=== PATIENT | male | born 1945 | race Caucasian/White ===

== ENCOUNTER 2020-10-16 14:10 | Inpatient (IN) | payer MEDICARE, OTHER ==
[~2020-10-16] VITALS: Ht 172.7 cm; Wt 80.7 kg
--- NOTE | 2020-10-16 00:50 | NUR ---
Sleeping during initial rounds. No s/s of pain/discomforts. Safety measures and fall prevention maintained.
[2020-10-16] MEDS ORDERED: Z GUARD REMEDY PASTE 57 GM TUBE TOP PRN (15:30)
--- NOTE | 2020-10-16 16:15 | NUR ---
Patient is admitted from [facility]. Came here via gurney VS WN. Patient is alert and oriented x 4 denies of any pain. Left hip dressing from the surgery intact. Skin is intact. On room air saturating at 97-98%. No s/s of distress. Call light within reach , urinal within easy reach. Dr. Johnson and Dr Tapia notified. Endorsed to the next shift.
[2020-10-16] MEDS ORDERED: RANO500T6 PO (17:57)
[2020-10-16] MEDS ORDERED: HYDR-3980 PO (17:57)
[2020-10-16] MEDS ORDERED: LOSA25TA27 PO (17:57)
[2020-10-16] MEDS ORDERED: METO-356 PO (17:57)
[2020-10-16] MEDS ORDERED: Morphine IV (17:57)
[2020-10-16] MEDS ORDERED: GABA100C PO (17:57)
[2020-10-16] MEDS ORDERED: ZOLP5TAB8 PO (17:57)
[2020-10-16] MEDS ORDERED: MAG355OR18 PO (17:57)
[2020-10-16] MEDS ORDERED: ATOR20TA PO (17:57)
[2020-10-16] MEDS ORDERED: [UNRECOGNIZED DRUG - CODE] PO (17:57)
[2020-10-16] MEDS ORDERED: ENOX40DI SQ (17:57)
[2020-10-16] MEDS ORDERED: Zofran IVP (17:57)
[2020-10-16] MEDS ORDERED: LINA5TAB PO (17:57)
[2020-10-16] MEDS ORDERED: ENZA40CA PO (17:57)
[2020-10-16] MEDS ORDERED: GEMF600T90 PO (17:57)
[2020-10-16] MEDS ORDERED: ACET-2154 PO (17:57)
[2020-10-16 21:18] VITALS: BP 115/46
[2020-10-16] MEDS ORDERED: HYDROCODONE/APAP 10-325 MG TABLET PO PRN (22:45)
[2020-10-16] MEDS ORDERED: MORPHINE SULFATE 2 MG/1 ML DISP.SYRIN IV PRN (22:45)
[2020-10-16] MEDS ORDERED: ONDANSETRON 4 MG/2 ML VIAL IV PRN (22:45)
[2020-10-17] MEDS: ACETAMINOPHEN 325 MG TABLET PO PRN ×2 (01:00→22:35)
--- NOTE | 2020-10-17 01:02 | NUR ---
Temperature re checked 100.3. Tylenol 650 mg given as ordered and needed. Cooling measures initiated. Continue to monitor.
--- NOTE | 2020-10-17 02:10 | NUR ---
Temperature this time 99.3. Resting comfortably. No complaint of pain/discomforts. Continue to monitor.
[2020-10-17 05:37] VITALS: BP 128/62
--- NOTE | 2020-10-17 05:38 | NUR ---
Temperature rechecked 98.0.
--- NOTE | 2020-10-17 05:51 | NUR ---
Shift End Report: Now afebrile with temp of 98.0 No complaint presented. Made comfortable at all times. No complaint presented all night. Continue care as planned.
[2020-10-17 08:00] VITALS: BP 119/48
[2020-10-17] MEDS: LOSARTAN POTASSIUM 25 MG TABLET PO SCH (08:49)
[2020-10-17] MEDS: GABAPENTIN 100 MG CAPSULE PO SCH (08:50)
[2020-10-17] MEDS: METOPROLOL SUCCINATE XL 25 MG TAB.SR.24H PO SCH (08:50)
[2020-10-17] MEDS: ATORVASTATIN 20 MG TABLET PO SCH (08:50)
[2020-10-17] MEDS: GEMFIBROZIL 600 MG TABLET PO SCH (08:50)
[2020-10-17] MEDS: LINAGLIPTIN 5 MG TABLET PO SCH (08:50)
[2020-10-17] MEDS ORDERED: ENOXAPARIN SODIUM 40 MG/0.4 ML DISP.SYRIN SQ ONE (09:00)
[2020-10-17] MEDS: OXYCODONE HCL 5 MG TABLET PO PRN (11:07)
[2020-10-17] MEDS ORDERED: DEXTROSE 50% 50 ML DISP.SYRIN IV PRN (14:00)
[2020-10-17] MEDS ORDERED: ENZA40CA PO (15:37)
[2020-10-17] MEDS ORDERED: XTANDI 160 MG PO SCH (15:45)
[2020-10-17 16:25] VITALS: BP 110/42
[2020-10-17] MEDS: BLOOD SUGAR DIAGNOSTIC 1 EACH STRIP VI SCH ×2 (17:23→21:03)
[2020-10-17] MEDS: XTANDI 160 MG PO SCH (17:25)
[2020-10-17] MEDS ORDERED: METFORMIN HCL 500 MG TABLET PO SCH (18:00)
--- NOTE | 2020-10-17 18:00 | NUR ---
Patient in bed, alert and oriented x 4, pleasant and cooperative upon assessment. Dressing on the left hip intact . All due meds given as ordered. @1500 Seen and examined by Daniella Austin and ordered Metformin 500mg PO daily to be started tomorrow 10/18/20 @ [address] Dr[address] Johnson ordered for Xtandi 160mg PO daily. @1630 Patient temp is 99.2. Cooling measure given @ 1730 patient temp is 98.8 and patient stated " I AM OK" . VS WNL. No s/s of distress. Will continue to monitor.
[2020-10-17 20:48] VITALS: BP 110/44
[2020-10-17] MEDS: MAG HYDROX/AL HYDROX/SIMETH 30 ML LIQUID UDC PO SCH (21:02)
--- NOTE | 2020-10-17 22:45 | NUR ---
Patient in bed, alert and oriented x 4, pleasant and cooperative upon assessment. Dressing on the left hip intact . All due meds given as ordered, no c/o pain patient has temp 99.7 PRN Tylenol administered as ordered cooling measures initiated. Safety measures maintained call light with in reach. continue monitoring.
[2020-10-18 04:07] VITALS: BP 110/56
[2020-10-18 04:57] VITALS: BP 116/53
--- NOTE | 2020-10-18 05:12 | NUR ---
Patient slept sound all night v/s assess again, VSS patient remain afebrile, no acute distress noted. All needs anticipated kept call light with in reach will endorse accordingly AM shift. Continue with same plan of care.
[2020-10-18] MEDS: BLOOD SUGAR DIAGNOSTIC 1 EACH STRIP VI SCH ×4 (07:04→20:08)
[2020-10-18 07:17] LABS: CARBON DIOXIDE 28 mmol/L (21-32); CHLORIDE 103 mmol/L (98-107); CREATININE 1.8 mg/dL (0.6-1.3); GLUCOSE 106 mg/dL (74-106); POTASSIUM 4.6 mmol/L (3.5-5.1); UREA NITROGEN, BLOOD 45 mg/dL (7-18)
[2020-10-18 07:56] VITALS: BP 124/51
[2020-10-18] MEDS: LINAGLIPTIN 5 MG TABLET PO SCH (08:21)
[2020-10-18] MEDS: ATORVASTATIN 20 MG TABLET PO SCH (08:21)
[2020-10-18] MEDS: GEMFIBROZIL 600 MG TABLET PO SCH (08:21)
[2020-10-18] MEDS: GABAPENTIN 100 MG CAPSULE PO SCH (08:21)
[2020-10-18] MEDS: LOSARTAN POTASSIUM 25 MG TABLET PO SCH (08:22)
[2020-10-18] MEDS: METOPROLOL SUCCINATE XL 25 MG TAB.SR.24H PO SCH (08:22)
[2020-10-18] MEDS: OXYCODONE HCL 5 MG TABLET PO PRN (08:23)
[2020-10-18] MEDS: ENOXAPARIN SODIUM 40 MG/0.4 ML DISP.SYRIN SQ SCH (09:38)
[2020-10-18] MEDS: METFORMIN HCL 500 MG TABLET PO SCH (09:38)
--- NOTE | 2020-10-18 11:00 | NUR ---
Patient alert, oriented x 4, not in any form of distress, on room air. Patient complained of pain on left hip, given PRN pain medication as ordered with noted relief. Patient participated with PT and tolerated. Needs attended to promptly. Call light and frequently used items placed within patient's reach. Daniella Austin VERTICAL CONTOUR BAND SAW OPERATOR in the unit, update given, high BUN and crea result relayed with due metformin, and VERTICAL CONTOUR BAND SAW OPERATOR gave no new order.
[2020-10-18 16:06] VITALS: BP 114/45
[2020-10-18] MEDS: XTANDI 160 MG PO SCH (17:28)
--- NOTE | 2020-10-18 18:27 | NUR ---
Patient seen and examined by Dr. Tapia, and MD ordered to discontinue [place] and Morphine sulfate IV, change oxycodone to 15mg PO every 6 hrs PRN.
[2020-10-18] MEDS: ACETAMINOPHEN 325 MG TABLET PO PRN (20:01)
[2020-10-18] MEDS: MAG HYDROX/AL HYDROX/SIMETH 30 ML LIQUID UDC PO SCH (20:15)
--- NOTE | 2020-10-18 20:30 | NUR ---
Patient in bed, alert and oriented x 4, at room air , no acute distress or c/o pain, pleasant and cooperative upon assessment. Original Dressing on the left hip noted soiled with fresh blood came out with itself could not reinforce to put back, clean surgical site aseptically enforced with abdominal pad, continue monitoring . All due meds given as ordered, no c/o pain patient has temp 100 F, PRN Tylenol administered as ordered cooling measures initiated. Safety measures maintained call light with in reach. continue monitoring.
[2020-10-18 20:40] VITALS: BP 123/45
--- NOTE | 2020-10-18 22:00 | NUR ---
Patient AOX4 at room air sleeping in bed no acute distress no c/o pain left hip dressing clean and intact in it place no further bleeding noted patient temperature taken again 98.3F patient remain afebrile. All needs anticipated, continue monitoring. Call light with in reach safety measures initiated.
--- NOTE | 2020-10-19 03:11 | NUR ---
Left hip surgical site pictures taken and kept in chart.
[2020-10-19 04:00] VITALS: BP 103/61
[2020-10-19] MEDS: ACETAMINOPHEN 325 MG TABLET PO PRN ×2 (06:22→17:25)
[2020-10-19 06:28] LABS: CARBON DIOXIDE 26 mmol/L (21-32); CHLORIDE 104 mmol/L (98-107); CREATININE 1.7 mg/dL (0.6-1.3); GLUCOSE 106 mg/dL (74-106); POTASSIUM 4.2 mmol/L (3.5-5.1); UREA NITROGEN, BLOOD 41 mg/dL (7-18)
[2020-10-19] MEDS: BLOOD SUGAR DIAGNOSTIC 1 EACH STRIP VI SCH ×4 (06:52→20:56)
[2020-10-19 08:38] VITALS: BP 109/52
[2020-10-19] MEDS: LOSARTAN POTASSIUM 25 MG TABLET PO SCH (09:00)
[2020-10-19] MEDS: METOPROLOL SUCCINATE XL 25 MG TAB.SR.24H PO SCH (09:00)
[2020-10-19] MEDS: METFORMIN HCL 500 MG TABLET PO SCH (09:16)
[2020-10-19] MEDS: GABAPENTIN 100 MG CAPSULE PO SCH (09:16)
[2020-10-19] MEDS: LINAGLIPTIN 5 MG TABLET PO SCH (09:16)
[2020-10-19] MEDS: GEMFIBROZIL 600 MG TABLET PO SCH (09:16)
[2020-10-19] MEDS: ATORVASTATIN 20 MG TABLET PO SCH (09:17)
[2020-10-19] MEDS: ENOXAPARIN SODIUM 40 MG/0.4 ML DISP.SYRIN SQ SCH (09:18)
[2020-10-19] MEDS: OXYCODONE HCL 5 MG TABLET PO PRN (09:29)
[2020-10-19 15:29] VITALS: BP 112/54
--- NOTE | 2020-10-19 15:36 | NUR ---
INDIVIDUALIZED PLAN OF CARE
[2020-10-19] MEDS: DOCUSATE SODIUM 100 MG CAPSULE PO SCH (17:25)
[2020-10-19 17:45] LABS: *BILIRUBIN,URIN NEGATIVE (NEGATIVE); *BLOOD, URINE 2+ (NEGATIVE); *CLARITY,URINE CLEAR (CLEAR); *COLOR,URINE YELLOW (YELLOW); *KETONES,URINE NEGATIVE (NEGATIVE); *UROBILINOGEN,URINE 0.2 E.U./dl (NORMAL); LEUKOCYTE ESTERASE ,URINE NEGATIVE (NEGATIVE); NITRITE, URINE NEGATIVE (NEGATIVE); PH,URINE 5.5 (5.0-8.0); UGLUCOSE NEGATIVE (NEGATIVE)
[2020-10-19] MEDS: XTANDI 160 MG PO SCH (18:30)
--- NOTE | 2020-10-19 18:30 | NUR ---
Patient remains alert, oriented x 4, not in any form of distress. Informed Dr. Barroso regarding episodes of low grade fever as endorsed by film processing shift supervisor nurse. MD ordered to do urinalysis with urine culture. Specimen sent to laboratory. Will continue to monitor and will endorse accordingly.
[2020-10-19] MEDS: MAG HYDROX/AL HYDROX/SIMETH 30 ML LIQUID UDC PO SCH (20:52)
[2020-10-19 20:57] VITALS: BP 111/46
[2020-10-19] MEDS: INSULIN REGULAR, HUMAN 300 UNIT/3 ML VIAL SQ PRN (20:58)
--- NOTE | 2020-10-19 22:00 | NUR ---
Patient in bed, alert and oriented x 4, pleasant and cooperative upon assessment. Dressing on the left hip intact noted with some drainage. Changed and pictures taken, placed in chart. All due meds given as ordered, no c/o pain patient has temp 99.5 ordered cooling measures initiated. Safety measures maintained call light with in reach. continue monitoring.
[2020-10-19 22:27] LABS: BACTERIA,URINE NONE SEEN /HPF (NONE SEEN); SQUAMOUS EPITHELIAL CELL,UR NONE SEEN /HPF (NONE SEEN); WBC,URINE NONE SEEN /HPF (0-3)
[2020-10-19 22:28] LABS: URIC ACID CRYSTALS,URINE MODERATE /HPF (NONE SEEN)
[2020-10-20 04:45] VITALS: BP 136/48
[2020-10-20 07:02] LABS: BASOPHILS % (AUTO) 0.6 % (0.0-2.0); EOSINOPHILS # (AUTO) 0.1 K/uL (0.0-0.7); EOSINOPHILS % (AUTO) 1.4 % (0.0-7.0); HEMATOCRIT 22.4 % (36.7-47.1); HEMOGLOBIN 7.6 g/dL (12.5-16.3); LYMPHOCYTES # (AUTO) 0.4 K/uL (20.0-40.0); LYMPHOCYTES % (AUTO) 5.3 % (20.5-51.5); MEAN CORPUSCULAR HGB CONC 34 g/dL (32.5-36.3); MEAN CORPUSCULAR VOLUME 85.1 fL (73.0-96.2); MONOCYTES # (AUTO) 0.7 K/uL (2.0-10.0); MONOCYTES % (AUTO) 8.5 % (0.0-11.0); NEUTROPHILS # (AUTO) 6.8 K/uL (1.8-8.9); NEUTROPHILS % (AUTO) 84.2 % (38.5-71.5); PLATELET COUNT (AUTO) 274 K/uL (152-348); RED BLOOD CELL COUNT(AUTO) 2.63 MIL/uL (4.06-5.63)
[2020-10-20] MEDS: BLOOD SUGAR DIAGNOSTIC 1 EACH STRIP VI SCH ×4 (07:09→21:59)
[2020-10-20 07:25] LABS: CARBON DIOXIDE 26 mmol/L (21-32); CHLORIDE 102 mmol/L (98-107); CREATININE 1.6 mg/dL (0.6-1.3); GLUCOSE 101 mg/dL (74-106); POTASSIUM 4.1 mmol/L (3.5-5.1)
[2020-10-20 07:49] LABS: UREA NITROGEN, BLOOD 34 mg/dL (7-18)
[2020-10-20 08:00] VITALS: BP 128/51
[2020-10-20] MEDS: ATORVASTATIN 20 MG TABLET PO SCH (09:39)
[2020-10-20] MEDS: GABAPENTIN 100 MG CAPSULE PO SCH (09:40)
[2020-10-20] MEDS: DOCUSATE SODIUM 100 MG CAPSULE PO SCH ×2 (09:40→17:35)
[2020-10-20] MEDS: METFORMIN HCL 500 MG TABLET PO SCH (09:40)
[2020-10-20] MEDS: LINAGLIPTIN 5 MG TABLET PO SCH (09:40)
[2020-10-20] MEDS: GEMFIBROZIL 600 MG TABLET PO SCH (09:40)
[2020-10-20] MEDS: LOSARTAN POTASSIUM 25 MG TABLET PO SCH (09:41)
[2020-10-20] MEDS: METOPROLOL SUCCINATE XL 25 MG TAB.SR.24H PO SCH (09:41)
[2020-10-20] MEDS: OXYCODONE HCL 5 MG TABLET PO PRN (10:07)
[2020-10-20] MEDS: ENOXAPARIN SODIUM 40 MG/0.4 ML DISP.SYRIN SQ SCH (10:08)
[2020-10-20 14:36] LABS: EOSINOPHILS % (MANUAL) 2 % (0-8); LYMPHOCYTES % (MANUAL) 5 % (20-40); MONOCYTES % (MANUAL) 9 % (2-10); NEUTROPHILS % (MANUAL) 85 % (42-75)
--- NOTE | 2020-10-20 14:37 | NUR ---
INTERDISCIPLINARY TEAM CONFERENCE
[2020-10-20 16:00] VITALS: BP 126/50
[2020-10-20] MEDS: INSULIN REGULAR, HUMAN 300 UNIT/3 ML VIAL SQ PRN (17:35)
[2020-10-20] MEDS: XTANDI 160 MG PO SCH (17:35)
--- NOTE | 2020-10-20 19:20 | NUR ---
EOSS: Pt in bed, watching TV, A&Ox4, able to verbalize needs throughout shift. No acute distress noted. Pt denies pain/discomfort at this time. VSS. Patient remained afebrile this shift. Due medications given per order, no a/r noted. L hip dressing noted with some drainage, dressing changed, C/D/I. Safety measures and fall precautions maintained. Call light and belongings within reach. Will endorse care to date night caregiver nurse.
--- NOTE | 2020-10-20 19:50 | NUR ---
Received pt in bed, awake and verbally responsive, no s/s of respiratory distress, denies any discomfort or pain. Safety measures initiated, call light within reach, will continue to monitor.
[2020-10-20 20:00] VITALS: BP 120/52
[2020-10-20] MEDS: MAG HYDROX/AL HYDROX/SIMETH 30 ML LIQUID UDC PO SCH (21:56)
[2020-10-21 04:00] VITALS: BP 127/54
[2020-10-21] MEDS: ACETAMINOPHEN 325 MG TABLET PO PRN (04:41)
[2020-10-21] MEDS: MIRALAX 17 GM POWD.PACK PO PRN (04:53)
[2020-10-21] MEDS: BLOOD SUGAR DIAGNOSTIC 1 EACH STRIP VI SCH ×4 (06:39→20:51)
[2020-10-21 07:51] VITALS: BP 123/53
[2020-10-21] MEDS: LINAGLIPTIN 5 MG TABLET PO SCH (08:39)
[2020-10-21] MEDS: DOCUSATE SODIUM 100 MG CAPSULE PO SCH ×2 (08:39→16:51)
[2020-10-21] MEDS: GEMFIBROZIL 600 MG TABLET PO SCH (08:39)
[2020-10-21] MEDS: METFORMIN HCL 500 MG TABLET PO SCH (08:39)
[2020-10-21] MEDS: METOPROLOL SUCCINATE XL 25 MG TAB.SR.24H PO SCH (08:40)
[2020-10-21] MEDS: ATORVASTATIN 20 MG TABLET PO SCH (08:40)
[2020-10-21] MEDS: LOSARTAN POTASSIUM 25 MG TABLET PO SCH (08:40)
[2020-10-21] MEDS: GABAPENTIN 100 MG CAPSULE PO SCH (08:40)
[2020-10-21] MEDS: ENOXAPARIN SODIUM 40 MG/0.4 ML DISP.SYRIN SQ SCH (08:42)
[2020-10-21] MEDS: OXYCODONE HCL 5 MG TABLET PO PRN (09:21)
[2020-10-21] MEDS: XTANDI 160 MG PO SCH (17:11)
[2020-10-21 20:09] VITALS: BP 129/52
[2020-10-21] MEDS: MAG HYDROX/AL HYDROX/SIMETH 30 ML LIQUID UDC PO SCH (20:48)
[2020-10-22 04:00] VITALS: BP 117/54
[2020-10-22] MEDS: BLOOD SUGAR DIAGNOSTIC 1 EACH STRIP VI SCH ×4 (06:21→20:13)
--- NOTE | 2020-10-22 06:50 | NUR ---
Shift End Report: VS stable. Slept good. No complaint presented all night. No s/s of hypo/hyperglycemia. All needs attended and met. No significant event reported all night. Continue current rehab plan of care,.
[2020-10-22 07:46] VITALS: BP 123/54
[2020-10-22] MEDS: ATORVASTATIN 20 MG TABLET PO SCH (08:48)
[2020-10-22] MEDS: GEMFIBROZIL 600 MG TABLET PO SCH (08:48)
[2020-10-22] MEDS: METFORMIN HCL 500 MG TABLET PO SCH (08:48)
[2020-10-22] MEDS: METOPROLOL SUCCINATE XL 25 MG TAB.SR.24H PO SCH (08:48)
[2020-10-22] MEDS: DOCUSATE SODIUM 100 MG CAPSULE PO SCH ×2 (08:48→16:24)
[2020-10-22] MEDS: GABAPENTIN 100 MG CAPSULE PO SCH (08:48)
[2020-10-22] MEDS: LINAGLIPTIN 5 MG TABLET PO SCH (08:49)
[2020-10-22] MEDS: LOSARTAN POTASSIUM 25 MG TABLET PO SCH (08:49)
[2020-10-22] MEDS: ENOXAPARIN SODIUM 40 MG/0.4 ML DISP.SYRIN SQ SCH (08:50)
[2020-10-22] MEDS: MIRALAX 17 GM POWD.PACK PO PRN (10:27)
[2020-10-22 15:06] VITALS: BP 123/55
[2020-10-22] MEDS: XTANDI 160 MG PO SCH (17:27)
--- NOTE | 2020-10-22 19:12 | NUR ---
no distress during shift, incision dry and clean
[2020-10-22] MEDS: MAG HYDROX/AL HYDROX/SIMETH 30 ML LIQUID UDC PO SCH (20:11)
[2020-10-22 20:28] VITALS: BP 129/52
[2020-10-23 04:00] VITALS: BP 108/63
[2020-10-23] MEDS: BLOOD SUGAR DIAGNOSTIC 1 EACH STRIP VI SCH ×4 (06:48→20:38)
[2020-10-23 06:51] LABS: BASOPHILS % (AUTO) 0.4 % (0.0-2.0); EOSINOPHILS # (AUTO) 0.2 K/uL (0.0-0.7); EOSINOPHILS % (AUTO) 2.1 % (0.0-7.0); HEMATOCRIT 23.3 % (36.7-47.1); HEMOGLOBIN 7.8 g/dL (12.5-16.3); LYMPHOCYTES # (AUTO) 0.6 K/uL (20.0-40.0); LYMPHOCYTES % (AUTO) 5.9 % (20.5-51.5); MEAN CORPUSCULAR HEMOGLOBIN 28.8 uug (23.8-33.4); MEAN CORPUSCULAR HGB CONC 34 g/dL (32.5-36.3); MEAN CORPUSCULAR VOLUME 86.1 fL (73.0-96.2); MONOCYTES # (AUTO) 0.7 K/uL (2.0-10.0); MONOCYTES % (AUTO) 7.8 % (0.0-11.0); NEUTROPHILS # (AUTO) 7.9 K/uL (1.8-8.9); NEUTROPHILS % (AUTO) 83.8 % (38.5-71.5); PLATELET COUNT (AUTO) 354 K/uL (152-348); RED BLOOD CELL COUNT(AUTO) 2.71 MIL/uL (4.06-5.63); WHITE BLOOD COUNT (AUTO) 9.4 K/uL (3.6-10.2)
[2020-10-23 07:12] LABS: CARBON DIOXIDE 28 mmol/L (21-32); CHLORIDE 104 mmol/L (98-107); CREATININE 1.4 mg/dL (0.6-1.3); GLUCOSE 100 mg/dL (74-106); POTASSIUM 4.7 mmol/L (3.5-5.1); UREA NITROGEN, BLOOD 25 mg/dL (7-18)
--- NOTE | 2020-10-23 07:21 | NUR ---
Shift End Report: Very compliant to plan of care. No compliant presented all night. Slept well. Continue current rehab plan of care.
[2020-10-23 08:00] VITALS: BP 112/52
[2020-10-23] MEDS: DOCUSATE SODIUM 100 MG CAPSULE PO SCH ×2 (08:46→16:26)
[2020-10-23] MEDS: LINAGLIPTIN 5 MG TABLET PO SCH (08:47)
[2020-10-23] MEDS: LOSARTAN POTASSIUM 25 MG TABLET PO SCH (08:47)
[2020-10-23] MEDS: ATORVASTATIN 20 MG TABLET PO SCH (08:47)
[2020-10-23] MEDS: GABAPENTIN 100 MG CAPSULE PO SCH (08:47)
[2020-10-23] MEDS: GEMFIBROZIL 600 MG TABLET PO SCH (08:47)
[2020-10-23] MEDS: METFORMIN HCL 500 MG TABLET PO SCH (08:47)
[2020-10-23] MEDS: METOPROLOL SUCCINATE XL 25 MG TAB.SR.24H PO SCH (08:48)
[2020-10-23] MEDS: OXYCODONE HCL 5 MG TABLET PO PRN (08:53)
[2020-10-23] MEDS: ENOXAPARIN SODIUM 40 MG/0.4 ML DISP.SYRIN SQ SCH (08:54)
--- NOTE | 2020-10-23 09:46 | NUR ---
Patient in bed, alert and oriented x 4 , pleasant and cooperative upon assessment. All due meds given as ordered. VW WNL. Patient on room air saturating at 95%. Patient went off the unit for therapy and will continue to monitor.
[2020-10-23 16:06] VITALS: BP 138/48
--- NOTE | 2020-10-23 16:30 | NUR ---
Patient blood sugar is 51. Patient is alert and able to swallow. [place] juice 4oz given and tolerated well. After 30 mins patient blood sugar is 115 and food tray is served when asked patient is alert and oriented not shaking and skin is warm to touch will continue to monitor.
[2020-10-23] MEDS: XTANDI 160 MG PO SCH (17:37)
[2020-10-23 20:18] VITALS: BP 115/53
[2020-10-23] MEDS: INSULIN REGULAR, HUMAN 300 UNIT/3 ML VIAL SQ PRN (20:38)
[2020-10-23] MEDS: MAG HYDROX/AL HYDROX/SIMETH 30 ML LIQUID UDC PO SCH (20:38)
[2020-10-23] MEDS: ACETAMINOPHEN 325 MG TABLET PO PRN (20:59)
--- NOTE | 2020-10-23 21:29 | NUR ---
Received pt resting in bed. AAO x4. No acute distress noted. Denies pain/ discomfort. Due med given as ordered. Blood sugar 118, no insulin coverage as per sliding scale. Pt c/o numbness of the right hip, no pain. Right lower extremity ROM WNL, strength is good. No redness or selling on the right hip noted. Notified Dr. Tapia with order to monitor as it could be from immobilization. Pt turned and repositioned. Safety measures maintained. Call light and personal items within reach. Will continue to monitor.
[2020-10-24 04:18] VITALS: BP 112/50
[2020-10-24] MEDS: BLOOD SUGAR DIAGNOSTIC 1 EACH STRIP VI SCH ×4 (06:39→20:46)
--- NOTE | 2020-10-24 07:06 | NUR ---
Pt's felt better about the right hip numbness after offloading the pressure from the right hip. Keep turning and repositioning q2h. Will endorse accordingly.
[2020-10-24 08:00] VITALS: BP 118/71
[2020-10-24] MEDS: METOPROLOL SUCCINATE XL 25 MG TAB.SR.24H PO SCH (08:31)
[2020-10-24] MEDS: GABAPENTIN 100 MG CAPSULE PO SCH (08:31)
[2020-10-24] MEDS: ATORVASTATIN 20 MG TABLET PO SCH (08:31)
[2020-10-24] MEDS: METFORMIN HCL 500 MG TABLET PO SCH (08:31)
[2020-10-24] MEDS: GEMFIBROZIL 600 MG TABLET PO SCH (08:31)
[2020-10-24] MEDS: LINAGLIPTIN 5 MG TABLET PO SCH (08:31)
[2020-10-24] MEDS: LOSARTAN POTASSIUM 25 MG TABLET PO SCH (08:32)
[2020-10-24] MEDS: DOCUSATE SODIUM 100 MG CAPSULE PO SCH ×2 (08:34→17:05)
[2020-10-24] MEDS: ENOXAPARIN SODIUM 40 MG/0.4 ML DISP.SYRIN SQ SCH (08:39)
--- NOTE | 2020-10-24 09:00 | NUR ---
Patient in bed, alert and oriented x 4 on room air saturating at 96%. VS WNL. Cooperative upon assessment. All due meds given per MD ordered. No s/s of distress. All needs attended. Placed call light within easy reach. Patient went off the unit for therapy.
[2020-10-24 16:23] VITALS: BP 119/47
[2020-10-24] MEDS: XTANDI 160 MG PO SCH (17:05)
[2020-10-24] MEDS: MAG HYDROX/AL HYDROX/SIMETH 30 ML LIQUID UDC PO SCH (20:34)
[2020-10-24 20:36] VITALS: BP 116/52
[2020-10-24] MEDS: INSULIN REGULAR, HUMAN 300 UNIT/3 ML VIAL SQ PRN (20:47)
--- NOTE | 2020-10-24 20:55 | NUR ---
Received pt resting in bed. AAO x4. No acute distress noted. Denies pain/ discomfort. Due med given as ordered. Blood sugar 97, no insulin coverage as per sliding scale. Pt turned and repositioned. Safety measures maintained. Call light and personal items within reach. Will continue to monitor.
[2020-10-25 05:26] VITALS: BP 115/50
--- NOTE | 2020-10-25 05:50 | NUR ---
Sleeping soundly during initial rounds. No s/s of respiratory distress noted. Safety measures and fall prevention maintained. Continue care as planned.
[2020-10-25] MEDS: BLOOD SUGAR DIAGNOSTIC 1 EACH STRIP VI SCH ×4 (06:43→20:45)
[2020-10-25 06:56] LABS: BASOPHILS # (AUTO) 0.1 K/uL (0.0-8.0); BASOPHILS % (AUTO) 0.6 % (0.0-2.0); EOSINOPHILS # (AUTO) 0.2 K/uL (0.0-0.7); EOSINOPHILS % (AUTO) 2.6 % (0.0-7.0); HEMATOCRIT 24.4 % (36.7-47.1); HEMOGLOBIN 8.2 g/dL (12.5-16.3); LYMPHOCYTES # (AUTO) 0.6 K/uL (20.0-40.0); LYMPHOCYTES % (AUTO) 7.8 % (20.5-51.5); MEAN CORPUSCULAR HGB CONC 34 g/dL (32.5-36.3); MEAN CORPUSCULAR VOLUME 86.2 fL (73.0-96.2); MONOCYTES # (AUTO) 0.5 K/uL (2.0-10.0); MONOCYTES % (AUTO) 5.7 % (0.0-11.0); NEUTROPHILS # (AUTO) 6.8 K/uL (1.8-8.9); NEUTROPHILS % (AUTO) 83.3 % (38.5-71.5); PLATELET COUNT (AUTO) 373 K/uL (152-348); RED BLOOD CELL COUNT(AUTO) 2.83 MIL/uL (4.06-5.63); WHITE BLOOD COUNT (AUTO) 8.2 K/uL (3.6-10.2)
[2020-10-25 07:05] LABS: CARBON DIOXIDE 30 mmol/L (21-32); CHLORIDE 105 mmol/L (98-107); CREATININE 1.4 mg/dL (0.6-1.3); GLUCOSE 91 mg/dL (74-106); POTASSIUM 4.8 mmol/L (3.5-5.1); UREA NITROGEN, BLOOD 25 mg/dL (7-18)
[2020-10-25 07:57] VITALS: BP 115/52
[2020-10-25] MEDS: ENOXAPARIN SODIUM 40 MG/0.4 ML DISP.SYRIN SQ SCH (08:13)
[2020-10-25] MEDS: ATORVASTATIN 20 MG TABLET PO SCH (08:16)
[2020-10-25] MEDS: GEMFIBROZIL 600 MG TABLET PO SCH (08:16)
[2020-10-25] MEDS: LINAGLIPTIN 5 MG TABLET PO SCH (08:16)
[2020-10-25] MEDS: METOPROLOL SUCCINATE XL 25 MG TAB.SR.24H PO SCH (08:16)
[2020-10-25] MEDS: METFORMIN HCL 500 MG TABLET PO SCH (08:16)
[2020-10-25] MEDS: LOSARTAN POTASSIUM 25 MG TABLET PO SCH (08:17)
[2020-10-25] MEDS: GABAPENTIN 100 MG CAPSULE PO SCH (08:17)
[2020-10-25] MEDS: DOCUSATE SODIUM 100 MG CAPSULE PO SCH ×2 (08:17→17:06)
--- NOTE | 2020-10-25 15:38 | NUR ---
Patient in bed alert and oriented x 4 cooperative upon assessment. Call light within reach. All needs met promptly. Went off the unit for his therapy. Changed the dressing on the left hip . VS WNL all needs met promptly.
[2020-10-25 16:00] VITALS: BP 117/43
[2020-10-25] MEDS: XTANDI 160 MG PO SCH (17:06)
[2020-10-25 20:12] VITALS: BP 123/53
[2020-10-25] MEDS: MAG HYDROX/AL HYDROX/SIMETH 30 ML LIQUID UDC PO SCH (20:45)
[2020-10-26 04:34] VITALS: BP 124/56
--- NOTE | 2020-10-26 05:53 | NUR ---
Shift End Report: Slept well. No complaint presented all night. Continue care as planned.
[2020-10-26] MEDS: BLOOD SUGAR DIAGNOSTIC 1 EACH STRIP VI SCH ×4 (06:07→21:49)
[2020-10-26 08:00] VITALS: BP 107/50
[2020-10-26] MEDS: GABAPENTIN 100 MG CAPSULE PO SCH (08:45)
[2020-10-26] MEDS: GEMFIBROZIL 600 MG TABLET PO SCH (08:45)
[2020-10-26] MEDS: ATORVASTATIN 20 MG TABLET PO SCH (08:45)
[2020-10-26] MEDS: METFORMIN HCL 500 MG TABLET PO SCH (08:45)
[2020-10-26] MEDS: DOCUSATE SODIUM 100 MG CAPSULE PO SCH ×2 (08:45→17:26)
[2020-10-26] MEDS: LINAGLIPTIN 5 MG TABLET PO SCH (08:45)
[2020-10-26] MEDS: ENOXAPARIN SODIUM 40 MG/0.4 ML DISP.SYRIN SQ SCH (08:47)
[2020-10-26] MEDS: ACETAMINOPHEN 325 MG TABLET PO PRN (08:51)
[2020-10-26] MEDS: LOSARTAN POTASSIUM 25 MG TABLET PO SCH (08:52)
[2020-10-26] MEDS: METOPROLOL SUCCINATE XL 25 MG TAB.SR.24H PO SCH (08:54)
[2020-10-26 16:03] VITALS: BP 131/51
[2020-10-26] MEDS: XTANDI 160 MG PO SCH (17:26)
[2020-10-26 19:49] VITALS: BP 135/52
--- NOTE | 2020-10-26 20:00 | NUR ---
in bed resting, no c/o pain presented, up to br using walker, voided freely well. no ssx of diabetic crises. bs at hs 108. left hip dressing in place.
[2020-10-26] MEDS: MAG HYDROX/AL HYDROX/SIMETH 30 ML LIQUID UDC PO SCH (21:00)
--- NOTE | 2020-10-27 02:30 | NUR ---
slept at long intervals. safety precautions observed and maintained.
[2020-10-27 04:35] VITALS: BP 133/55
[2020-10-27] MEDS: BLOOD SUGAR DIAGNOSTIC 1 EACH STRIP VI SCH ×4 (06:18→20:32)
[2020-10-27 08:00] VITALS: BP 139/54
[2020-10-27] MEDS: ACETAMINOPHEN 325 MG TABLET PO PRN (08:32)
[2020-10-27] MEDS: DOCUSATE SODIUM 100 MG CAPSULE PO SCH ×2 (08:32→17:48)
[2020-10-27] MEDS: GEMFIBROZIL 600 MG TABLET PO SCH (08:32)
[2020-10-27] MEDS: LOSARTAN POTASSIUM 25 MG TABLET PO SCH (08:33)
[2020-10-27] MEDS: METFORMIN HCL 500 MG TABLET PO SCH (08:33)
[2020-10-27] MEDS: GABAPENTIN 100 MG CAPSULE PO SCH (08:33)
[2020-10-27] MEDS: METOPROLOL SUCCINATE XL 25 MG TAB.SR.24H PO SCH (08:33)
[2020-10-27] MEDS: ATORVASTATIN 20 MG TABLET PO SCH (08:33)
[2020-10-27] MEDS: LINAGLIPTIN 5 MG TABLET PO SCH (08:38)
[2020-10-27] MEDS: ENOXAPARIN SODIUM 40 MG/0.4 ML DISP.SYRIN SQ SCH (08:46)
--- NOTE | 2020-10-27 14:54 | NUR ---
INTERDISCIPLINARY TEAM CONFERENCE
--- NOTE | 2020-10-27 15:47 | NUR ---
patient is alert, oriented x4, no sob, reso even nonlabored,skin wam and dry to touch, ambulatory, supervision with adls, needs attended timely.
[2020-10-27 16:00] VITALS: BP 129/56
[2020-10-27] MEDS: XTANDI 160 MG PO SCH (17:48)
--- NOTE | 2020-10-27 19:45 | NUR ---
Awake, in bed, watching TV during initial rounds. Denies any pain/discomforts. Safety measures and fall prevention maintained. Continue care as planned.
[2020-10-27] MEDS: MAG HYDROX/AL HYDROX/SIMETH 30 ML LIQUID UDC PO SCH (20:32)
[2020-10-27 20:51] VITALS: BP 107/52
[2020-10-28 04:00] VITALS: BP 120/56
--- NOTE | 2020-10-28 05:37 | NUR ---
Shift End Report: VS stable. Slept well. All needs attended and met. No significant event reported all night. Continue current rehab plan of care.
[2020-10-28] MEDS: BLOOD SUGAR DIAGNOSTIC 1 EACH STRIP VI SCH ×4 (06:09→20:25)
[2020-10-28 08:16] VITALS: BP 123/51
[2020-10-28] MEDS: DOCUSATE SODIUM 100 MG CAPSULE PO SCH ×2 (09:15→16:53)
[2020-10-28] MEDS: GEMFIBROZIL 600 MG TABLET PO SCH (09:15)
[2020-10-28] MEDS: LOSARTAN POTASSIUM 25 MG TABLET PO SCH (09:15)
[2020-10-28] MEDS: GABAPENTIN 100 MG CAPSULE PO SCH (09:15)
[2020-10-28] MEDS: LINAGLIPTIN 5 MG TABLET PO SCH (09:15)
[2020-10-28] MEDS: METFORMIN HCL 500 MG TABLET PO SCH (09:15)
[2020-10-28] MEDS: METOPROLOL SUCCINATE XL 25 MG TAB.SR.24H PO SCH (09:15)
[2020-10-28] MEDS: ATORVASTATIN 20 MG TABLET PO SCH (09:16)
[2020-10-28] MEDS: ACETAMINOPHEN 325 MG TABLET PO PRN (09:19)
[2020-10-28] MEDS: ENOXAPARIN SODIUM 40 MG/0.4 ML DISP.SYRIN SQ SCH (10:10)
--- NOTE | 2020-10-28 14:23 | NUR ---
Pt is AO x 4. Able to tolerate meals today, medications and rehab. Progressing fairly well, surgical incision with no signs of infection, and dressing is clean, dry and intact. Pt is pleasant and cooperative with nurses and rehab staff. He is motivated to improve. VS and condition stable. Hourly rounding done as documented.
[2020-10-28 14:58] VITALS: BP_SYST 106; BP_SYST 122; BP_DIAS 48; BP_DIAS 55
[2020-10-28] MEDS: XTANDI 160 MG PO SCH (16:53)
[2020-10-28] MEDS: MAG HYDROX/AL HYDROX/SIMETH 30 ML LIQUID UDC PO SCH (20:24)
[2020-10-28] MEDS: INSULIN REGULAR, HUMAN 300 UNIT/3 ML VIAL SQ PRN (20:25)
[2020-10-28 20:35] VITALS: BP 116/72
--- NOTE | 2020-10-28 22:30 | NUR ---
Received pt resting in bed. AAO x4. No acute distress noted. Denies pain/ discomfort. pt refused to take Maalox tonight, states " already had a BM this morning." Blood sugar 104, no insulin coverage as per sliding scale. Snacks provided. Needs attended to promptly. Safety measures maintained. Call light and personal items within reach. Will continue plan of care.
[2020-10-29 04:00] VITALS: BP 108/60
[2020-10-29] MEDS: BLOOD SUGAR DIAGNOSTIC 1 EACH STRIP VI SCH ×4 (06:58→20:49)
[2020-10-29 08:00] VITALS: BP 113/46
[2020-10-29] MEDS: METFORMIN HCL 500 MG TABLET PO SCH (08:29)
[2020-10-29] MEDS: LINAGLIPTIN 5 MG TABLET PO SCH (08:29)
[2020-10-29] MEDS: GABAPENTIN 100 MG CAPSULE PO SCH (08:29)
[2020-10-29] MEDS: GEMFIBROZIL 600 MG TABLET PO SCH (08:29)
[2020-10-29] MEDS: ATORVASTATIN 20 MG TABLET PO SCH (08:29)
[2020-10-29] MEDS: METOPROLOL SUCCINATE XL 25 MG TAB.SR.24H PO SCH (08:30)
[2020-10-29] MEDS: LOSARTAN POTASSIUM 25 MG TABLET PO SCH (08:30)
[2020-10-29] MEDS: ENOXAPARIN SODIUM 40 MG/0.4 ML DISP.SYRIN SQ SCH (08:32)
[2020-10-29] MEDS: ACETAMINOPHEN 325 MG TABLET PO PRN (08:33)
[2020-10-29] MEDS: DOCUSATE SODIUM 100 MG CAPSULE PO SCH ×2 (08:33→17:38)
[2020-10-29 16:00] VITALS: BP 112/47
[2020-10-29] MEDS: XTANDI 160 MG PO SCH (17:38)
[2020-10-29] MEDS: MAG HYDROX/AL HYDROX/SIMETH 30 ML LIQUID UDC PO SCH (20:49)
[2020-10-30 04:00] VITALS: BP 121/59
[2020-10-30 06:40] LABS: CREATININE 1.3 mg/dL (0.6-1.3); POTASSIUM 4.7 mmol/L (3.5-5.1)
[2020-10-30 06:44] LABS: BASOPHILS % (AUTO) 0.6 % (0.0-2.0); EOSINOPHILS # (AUTO) 0.1 K/uL (0.0-0.7); EOSINOPHILS % (AUTO) 2.4 % (0.0-7.0); HEMATOCRIT 29.1 % (36.7-47.1); HEMOGLOBIN 9.5 g/dL (12.5-16.3); LYMPHOCYTES # (AUTO) 0.5 K/uL (20.0-40.0); LYMPHOCYTES % (AUTO) 9.9 % (20.5-51.5); MEAN CORPUSCULAR HEMOGLOBIN 28.4 uug (23.8-33.4); MEAN CORPUSCULAR HGB CONC 33 g/dL (32.5-36.3); MEAN CORPUSCULAR VOLUME 86.8 fL (73.0-96.2); MONOCYTES # (AUTO) 0.3 K/uL (2.0-10.0); MONOCYTES % (AUTO) 7.1 % (0.0-11.0); NEUTROPHILS # (AUTO) 3.9 K/uL (1.8-8.9); PLATELET COUNT (AUTO) 345 K/uL (152-348); RED BLOOD CELL COUNT(AUTO) 3.35 MIL/uL (4.06-5.63); WHITE BLOOD COUNT (AUTO) 4.9 K/uL (3.6-10.2)
[2020-10-30] MEDS: BLOOD SUGAR DIAGNOSTIC 1 EACH STRIP VI SCH ×4 (06:53→20:18)
[2020-10-30 08:18] VITALS: BP 116/54
[2020-10-30] MEDS: METFORMIN HCL 500 MG TABLET PO SCH (08:48)
[2020-10-30] MEDS: ATORVASTATIN 20 MG TABLET PO SCH (08:48)
[2020-10-30] MEDS: LINAGLIPTIN 5 MG TABLET PO SCH (08:48)
[2020-10-30] MEDS: ACETAMINOPHEN 325 MG TABLET PO PRN (08:48)
[2020-10-30] MEDS: GEMFIBROZIL 600 MG TABLET PO SCH (08:49)
[2020-10-30] MEDS: GABAPENTIN 100 MG CAPSULE PO SCH (08:49)
[2020-10-30] MEDS: DOCUSATE SODIUM 100 MG CAPSULE PO SCH ×2 (08:49→17:13)
[2020-10-30] MEDS: ENOXAPARIN SODIUM 40 MG/0.4 ML DISP.SYRIN SQ SCH (08:53)
[2020-10-30] MEDS: LOSARTAN POTASSIUM 25 MG TABLET PO SCH (09:00)
[2020-10-30] MEDS: METOPROLOL SUCCINATE XL 25 MG TAB.SR.24H PO SCH (09:00)
[2020-10-30 15:28] LABS: BAND % (MANUAL) 2 % (0-10); LYMPHOCYTES % (MANUAL) 13 % (20-40); MONOCYTES % (MANUAL) 7 % (2-10); NEUTROPHILS % (MANUAL) 78 % (42-75)
[2020-10-30 15:51] VITALS: BP 115/63
[2020-10-30] MEDS: XTANDI 160 MG PO SCH (17:13)
[2020-10-30 20:10] VITALS: BP 124/52
[2020-10-30] MEDS: MAG HYDROX/AL HYDROX/SIMETH 30 ML LIQUID UDC PO SCH (20:18)
[2020-10-31 05:38] VITALS: BP 124/51
[2020-10-31] MEDS: BLOOD SUGAR DIAGNOSTIC 1 EACH STRIP VI SCH ×4 (07:03→21:12)
[2020-10-31] MEDS: ACETAMINOPHEN 325 MG TABLET PO PRN (07:40)
--- NOTE | 2020-10-31 08:00 | NUR ---
Received patient in bed alert and oriented x 4, denies of any pain. Pleasant and cooperative upon assessment. @ 0900 dressing changed per patient she wants the outside dressing to be change. All due medications given per MD ordered. Midline on the right upper arm patent. On bower catheter draining well urine yellow in color. Call light placed withhin easy reach. All needs met promptly. Will continue to monitor. Addendum: 10/31/20 at 1000 by VALERIY VILLALOBOS RN RN wrong patient
[2020-10-31 08:06] VITALS: BP 124/53
[2020-10-31] MEDS: ENOXAPARIN SODIUM 40 MG/0.4 ML DISP.SYRIN SQ SCH (08:12)
[2020-10-31] MEDS: DOCUSATE SODIUM 100 MG CAPSULE PO SCH ×2 (08:13→17:20)
[2020-10-31] MEDS: ATORVASTATIN 20 MG TABLET PO SCH (08:14)
[2020-10-31] MEDS: LINAGLIPTIN 5 MG TABLET PO SCH (08:14)
[2020-10-31] MEDS: LOSARTAN POTASSIUM 25 MG TABLET PO SCH (08:14)
[2020-10-31] MEDS: GABAPENTIN 100 MG CAPSULE PO SCH (08:14)
[2020-10-31] MEDS: GEMFIBROZIL 600 MG TABLET PO SCH (08:14)
[2020-10-31] MEDS: METOPROLOL SUCCINATE XL 25 MG TAB.SR.24H PO SCH (08:15)
[2020-10-31] MEDS: METFORMIN HCL 500 MG TABLET PO SCH (08:15)
--- NOTE | 2020-10-31 11:13 | NUR ---
Patient in bed, alert and oriented x 4, pleasant and cooperative upon assessment. All due meds given as ordered. All needs met in a timely manner. Notify Dr. Child regarding patients kwame on his left hip as patient is asking when to remove it. Dr Child order to OK to remove the kwame and cover with dressing. Patient notified.
--- NOTE | 2020-10-31 13:15 | NUR ---
kwame are removed on his left hip per MD order and as patient wants to removed it after lunch. No bleeding noted. Steri strips applied and covered with dressing. Patient denies of any pain at this time. Patient's girlfriend came in to visit Charge Nurse Saira is aware. Will continue to monitor.
[2020-10-31 16:12] VITALS: BP 115/50
[2020-10-31] MEDS: XTANDI 160 MG PO SCH (17:20)
--- NOTE | 2020-10-31 19:19 | NUR ---
Received pt in bed, awake and verbally responsive, able to make needs known. Denies any pain or discomfort. No s/s of respiratory distress. Left hip incision covered with dressing, no soilage noted. Safety measures initiated, call light within reach, will continue to monitor.
[2020-10-31 19:46] VITALS: BP 119/50
[2020-10-31] MEDS: MAG HYDROX/AL HYDROX/SIMETH 30 ML LIQUID UDC PO SCH (21:00)
[2020-11-01 04:55] VITALS: BP 112/52
--- NOTE | 2020-11-01 06:23 | NUR ---
Pt in bed, awake and verbally responsive. Denies any pain or discomfort. No s/s of respiratory distress. Left hip incision dressing intact, no soilage noted. BS checks done. Safety measures maintained at all times, call light within reach, all needs attended.
[2020-11-01] MEDS: BLOOD SUGAR DIAGNOSTIC 1 EACH STRIP VI SCH ×4 (06:44→20:36)
[2020-11-01 08:16] VITALS: BP 119/53
[2020-11-01] MEDS: METFORMIN HCL 500 MG TABLET PO SCH (08:57)
[2020-11-01] MEDS: LINAGLIPTIN 5 MG TABLET PO SCH (08:57)
[2020-11-01] MEDS: DOCUSATE SODIUM 100 MG CAPSULE PO SCH ×2 (08:57→17:00)
[2020-11-01] MEDS: GABAPENTIN 100 MG CAPSULE PO SCH (08:57)
[2020-11-01] MEDS: ATORVASTATIN 20 MG TABLET PO SCH (08:57)
[2020-11-01] MEDS: GEMFIBROZIL 600 MG TABLET PO SCH (08:58)
[2020-11-01] MEDS: ACETAMINOPHEN 325 MG TABLET PO PRN (08:59)
[2020-11-01] MEDS: ENOXAPARIN SODIUM 40 MG/0.4 ML DISP.SYRIN SQ SCH (09:03)
[2020-11-01] MEDS: METOPROLOL SUCCINATE XL 25 MG TAB.SR.24H PO SCH (09:08)
[2020-11-01] MEDS: LOSARTAN POTASSIUM 25 MG TABLET PO SCH (09:09)
[2020-11-01 15:35] VITALS: BP 123/56
[2020-11-01] MEDS: XTANDI 160 MG PO SCH (17:00)
--- NOTE | 2020-11-01 19:02 | NUR ---
EOSS: Pt in bed, watching TV, A&Ox4, able to verbalize needs. No acute distress. Pt denies pain/discomfort at this time. VSS. Due medications given per order, no a/r noted. L hip dressing changed, steri-strips in place, C/D/I. Pt to be discharged home tomorrow. Safety measures and fall precautions maintained. Call light and belongings within reach. Will endorse care to launderer hand nurse.
--- NOTE | 2020-11-01 19:20 | NUR ---
Awake, alert, in bed, watching TV. Very pleasant, cooperative with care. Denies any pain/discomforts at this time. Safety measures and fall prevention maintained. Continue care as planned.
[2020-11-01 20:18] VITALS: BP 122/54
[2020-11-01] MEDS: MAG HYDROX/AL HYDROX/SIMETH 30 ML LIQUID UDC PO SCH (20:36)
[2020-11-02 04:24] VITALS: BP 125/55
[2020-11-02] MEDS: BLOOD SUGAR DIAGNOSTIC 1 EACH STRIP VI SCH ×2 (06:29→11:33)
--- NOTE | 2020-11-02 06:45 | NUR ---
Shift End Report: Vs stable. No s/s of hypo/hyperglycemia. No significant event reported. All needs attended and met. Slept good. Continue current rehab plan of care.
[2020-11-02 07:40] VITALS: BP 128/54
[2020-11-02] MEDS: LINAGLIPTIN 5 MG TABLET PO SCH (08:05)
[2020-11-02] MEDS: LOSARTAN POTASSIUM 25 MG TABLET PO SCH (08:05)
[2020-11-02] MEDS: METFORMIN HCL 500 MG TABLET PO SCH (08:05)
[2020-11-02] MEDS: GEMFIBROZIL 600 MG TABLET PO SCH (08:05)
[2020-11-02] MEDS: GABAPENTIN 100 MG CAPSULE PO SCH (08:05)
[2020-11-02] MEDS: DOCUSATE SODIUM 100 MG CAPSULE PO SCH (08:05)
[2020-11-02 08:06] VITALS: BP 128/54
[2020-11-02] MEDS: ATORVASTATIN 20 MG TABLET PO SCH (08:06)
[2020-11-02] MEDS: METOPROLOL SUCCINATE XL 25 MG TAB.SR.24H PO SCH (08:06)
[2020-11-02] MEDS: ENOXAPARIN SODIUM 40 MG/0.4 ML DISP.SYRIN SQ SCH (08:07)
--- NOTE | 2020-11-02 12:46 | NUR ---
Patient discharged home with ambulance, patient is alert, oriented x4, verbally responsive, no sob, resp even nonlabored, skin warm and dry to touch, stable condition, ambulatory with fww, no IV access on patient, patient teaching provided about meds, symptoms of hyperglycemia, and hypoglycemia, belonging are accounted and signed, patient verbalized understanding of it. picked up by [facility]. incision site is clean and dry, teaching provided for incision care, patient verbalized understanding of it, brandon stated he has all his meds home, does not need prescription, patient made aware about follow up apt with surgeon on november 10 at 1345. education material provided as well.
[2020-11-02 13:02] LABS: *BILIRUBIN,URIN NEGATIVE (NEGATIVE); *CLARITY,URINE SLIGHTLY CLOUDY (CLEAR); *COLOR,URINE YELLOW (YELLOW); *KETONES,URINE NEGATIVE (NEGATIVE); *UROBILINOGEN,URINE 0.2 E.U./dl (NORMAL); LEUKOCYTE ESTERASE ,URINE TRACE (NEGATIVE); NITRITE, URINE NEGATIVE (NEGATIVE); UGLUCOSE NEGATIVE (NEGATIVE)
[2020-11-02 13:05] LABS: *BLOOD, URINE TRACE (NEGATIVE)
[2020-11-02 13:47] LABS: SQUAMOUS EPITHELIAL CELL,UR FEW /HPF (NONE SEEN)
[2020-11-02 13:49] LABS: BACTERIA,URINE NONE SEEN /HPF (NONE SEEN); MUCUS,URINE NONE SEEN /LPF (0-FEW); RBC,URINE NONE SEEN /HPF (0-3); WBC,URINE 0-3 /HPF (0-3)
== END 2020-11-02 12:45 | disposition home health service (06) | DRG 559 ==
PROVIDERS: ADMIT Physical Medicine & Rehabilitation Pain Medicine; ATTEND Physical Medicine & Rehabilitation Pain Medicine
DX: S72.012D Unspecified intracapsular fracture of left femur, subsequent encounter for closed fracture with routine healing (principal); N17.0 Acute kidney failure with tubular necrosis; W01.0XXD Fall on same level from slipping, tripping and stumbling without subsequent striking against object, subsequent encounter; E78.5 Hyperlipidemia, unspecified; I10 Essential (primary) hypertension; M16.10 Unilateral primary osteoarthritis, unspecified hip; Z85.46 Personal history of malignant neoplasm of prostate; R53.1 Weakness; C61 Malignant neoplasm of prostate; M85.80 Other specified disorders of bone density and structure, unspecified site; Z96.642 Presence of left artificial hip joint; E11.9 Type 2 diabetes mellitus without complications
CPT/HCPCS: 36415; 70030-TC; 73502; 85025; 87086; J1650; J1815